=== PATIENT | female | born 1990 | race Caucasian/White ===

== ENCOUNTER 2018-08-02 10:55 | Day surgery (SDC) | payer BC ==
[~2018-08-02 10:55] MED LIST: CEFAZOLIN 1 GM INJ
[2018-08-02] MEDS ORDERED: DIPHENHYDRAMINE 50 MG INJ IV (15:00)
[2018-08-02] MEDS ORDERED: OXYCODONE/ACETAMINOPHEN (5/325) TAB PO (15:00)
[2018-08-02] MEDS ORDERED: ONDANSETRON 4 MG INJ IV (15:00)
[2018-08-02] MEDS ORDERED: MEPERIDINE 25 MG INJ IV (15:00)
[2018-08-02] MEDS ORDERED: HYDROmorphONE 1 MG/5 ML IV SYRINGE IV (15:00)
[2018-08-02] MEDS ORDERED: FENTAnyl 50 MCG/ML VIAL IV (15:00)
[2018-08-02] MEDS: BUPIVACAINE 0.5%/EPI (SDV) 30 ML INJ (15:20)
[2018-08-02] MEDS: TRIAMCINOLONE ACET 40 MG/ML INJ (15:20)
[2018-08-02] MEDS ORDERED: PROPOFOL 20 ML ×2 (15:30→15:39)
[2018-08-02] MEDS ORDERED: LIDOCAINE 2% (SDV) 5 ML INJ (15:30)
[2018-08-02] MEDS ORDERED: MIDAZOLAM 1 MG/ML 2 ML INJ (15:30)
[2018-08-02] MEDS ORDERED: FENTAnyl 50 MCG/ML VIAL (15:30)
[2018-08-02] MEDS ORDERED: SUCCINYLCHOLINE CHLORIDE 100 MG/5 ML SYG IV (15:48)
[2018-08-02] MEDS ORDERED: ROCURONIUM 50 MG INJ ×2 (15:48)
[2018-08-02] MEDS ORDERED: ONDANSETRON 4 MG INJ (15:50)
[2018-08-02] MEDS ORDERED: FAMOTIDINE 20 MG INJ (15:50)
[2018-08-02] MEDS ORDERED: INSULIN ASPART [NOVOLOG] 3 ML PEN SC (16:00)
[2018-08-02] MEDS ORDERED: LABETALOL HCL 20MG INJ (16:09)
[2018-08-02] MEDS ORDERED: SUGAMMADEX SODIUM 200 MG/2 ML VIAL IV (16:24)
[2018-08-02] MEDS ORDERED: GLUCOSE GEL 15 GRAM TUBE PO ×2 (16:30)
[2018-08-02] MEDS ORDERED: GLUCAGON 1 MG INJ IM (16:30)
[2018-08-02] MEDS ORDERED: DEXTROSE 50% 50 ML SYRINGE IV ×2 (16:30)
[2018-08-02] MEDS ORDERED: GLUCOSE GEL 15 GRAM TUBE BUCCAL (16:30)
== END 2018-08-02 18:20 | disposition home or self-care (01) ==
LOC: SDS 10:55
DX: J35.01 Chronic tonsillitis (principal); J03.80 Acute tonsillitis due to other specified organisms; E11.9 Type 2 diabetes mellitus without complications
CPT/HCPCS: 42826; 82962; 88304

== ENCOUNTER → 2018-08-11 | Emergency (ER) | payer BC ==
[2018-08-12] MEDS: HYDROCODONE/APAP (10/325) TAB PO (04:35)
[2018-08-12] MEDS: ONDANSETRON (ODT) 4 MG TAB ODT (04:35)
[2018-08-12] MEDS: ONDANSETRON 4 MG INJ IV (04:42)
[2018-08-12] MEDS: morphine 2 MG INJ IV (04:42)
== END | disposition home or self-care (01) ==
LOC: E/R 21:31
DX: G89.18 Other acute postprocedural pain (principal); E11.9 Type 2 diabetes mellitus without complications; Z79.84 Long term (current) use of oral hypoglycemic drugs
CPT/HCPCS: 82962; 96374; 96375; 99284-25; Z7502